=== PATIENT | male | born 1940 | race Caucasian/White ===

== ENCOUNTER → 2023-11-20 15:19 | Outpatient (REF) | payer BC, SELFPAY ==
[2023-11-20 16:14] LABS: % Basophils 0.5 % (0-2); % Eosinophils 2.7 % (0-6); % Immature Granulocytes 0.2 % (0-0.5); % Lymphocytes 25.8 % (20.5-51.1); % Neutrophils 61.8 % (42.2-75.2); Absolute Eosinophils 0.2 10^3/uL (0-0.7); Absolute Lymphocytes 2.1 10^3/uL (1.2-3.4); Absolute Monocytes 0.7 10^3/uL (0.1-0.6); Absolute Neutrophils 5.1 10^3/uL (1.4-6.5); Hemoglobin 14.1 g/dL (13.0-18.0); Mean Corp Hgb Conc. 33.6 g/dL (33.0-37.0); Mean Corpuscular Hgb 29.6 pg (27.0-31.0); Mean Corpuscular Volume 88.2 fL (80.0-94.0); Mean Platelet Volume 10.1 fL (7.4-10.4); Nucleated Red Blood Cells % 0 % (-); Platelet Count 203 10^3/uL (130-400); Red Blood Cell Count 4.76 10^6/uL (4.70-6.10); Red Cell Dist. Width 14.4 % (11.5-14.5); White Blood Cell Count 8.2 10^3/uL (4.8-10.8)
[2023-11-20 16:28] LABS: ALT (SGPT) 20 U/L (0-50); AST (SGOT) 26 U/L (17-59); Albumin 4.1 g/dl (3.5-5.0); Alkaline Phosphatase 54 U/L (38-126); Blood Urea Nitrogen 28 mg/dl (9-20); Calcium 9.4 mg/dl (8.4-10.2); Carbon Dioxide 26 mmol/L (22-30); Chloride 99 mmol/L (98-107); Glucose 108 mg/dl (70-99); Potassium 4.6 mmol/L (3.5-5.1); Sodium 136 mmol/L (135-145); Total Bilirubin 0.8 mg/dl (0.2-1.3); Total Protein 7.2 g/dl (6.3-8.2); eGFR 50.49
[2023-11-20 16:30] LABS: C-Reactive Protein < 5.00 mg/L (0.0-10.00)
[2023-11-20 16:38] LABS: Erythrocyte Sed Rate 16 mm/hour (0-20)
[2023-11-21 09:33] LABS: Glycohemoglobin (HgbA1c) 6.1 % (4.0-5.6)
== END ==
LOC: REG 15:19
PROVIDERS: ATTENDING PHYSICIAN Family Medicine
DX: I48.0 Paroxysmal atrial fibrillation (principal); R63.4 Abnormal weight loss; K86.9 Disease of pancreas, unspecified; M35.3 Polymyalgia rheumatica; E11.9 Type 2 diabetes mellitus without complications; I10 Essential (primary) hypertension; E78.2 Mixed hyperlipidemia
CPT/HCPCS: 36415; 80053; 83036; 85025; 85652; 86140

== ENCOUNTER → 2023-12-10 15:24 | Outpatient (REF) | payer BC, SELFPAY ==
[2023-12-10 16:06] LABS: Erythrocyte Sed Rate 4 mm/hour (0-20)
== END ==
LOC: REG 15:24
PROVIDERS: ATTENDING PHYSICIAN Family Medicine
DX: M35.3 Polymyalgia rheumatica (principal)
CPT/HCPCS: 36415; 85652; 86140

== ENCOUNTER → 2023-12-25 09:22 | Outpatient (REF) | payer BC, SELFPAY ==
[2023-12-25 10:37] LABS: HDL Cholesterol 39 mg/dl; LDL Cholesterol, Calculated 62 mg/dl; Total Cholesterol 143 mg/dl (50-199); Triglyceride 211 mg/dl (10-149); Very Low Density Lipoprotein 42 mg/dl (0-30)
[2023-12-25 11:06] LABS: TSH Reflex To Free T4 1.34 uIU/ml (0.47-4.68)
[2023-12-25 11:52] LABS: Glycohemoglobin (HgbA1c) 6.1 % (4.0-5.6)
== END ==
LOC: REG 09:22
PROVIDERS: ATTENDING PHYSICIAN Family Medicine
DX: R53.83 Other fatigue (principal); R63.4 Abnormal weight loss; E78.2 Mixed hyperlipidemia; R73.03 Prediabetes
CPT/HCPCS: 36415; 80061; 83036; 84443

== ENCOUNTER → 2024-11-08 10:51 | Outpatient (REF) | payer BC, MEDICARE, SELFPAY ==
[2024-11-08 14:22] LABS: Microalbumin, Random Urine 2.2 mg/dl (0.6-1.7)
[2024-11-08 14:36] LABS: TSH Reflex To Free T4 1.41 uIU/ml (0.47-4.68)
[2024-11-08 15:12] LABS: Glycohemoglobin (HgbA1c) 6.1 % (4.0-5.6)
== END ==
LOC: REG 10:51
PROVIDERS: ATTENDING PHYSICIAN Family Medicine
DX: I10 Essential (primary) hypertension (principal); E78.2 Mixed hyperlipidemia; J18.9 Pneumonia, unspecified organism; I50.9 Heart failure, unspecified; K21.9 Gastro-esophageal reflux disease without esophagitis; I77.89 Other specified disorders of arteries and arterioles; I44.39 Other atrioventricular block; I25.118 Atherosclerotic heart disease of native coronary artery with other forms of angina pectoris; E08.22 Diabetes mellitus due to underlying condition with diabetic chronic kidney disease; N18.31 Chronic kidney disease, stage 3a; I48.0 Paroxysmal atrial fibrillation; D68.69 Other thrombophilia; K22.70 Barrett's esophagus without dysplasia; F32.0 Major depressive disorder, single episode, mild; G47.33 Obstructive sleep apnea (adult) (pediatric); Z87.39 Personal history of other diseases of the musculoskeletal system and connective tissue; R05.1 Acute cough; J45.998 Other asthma; K86.89 Other specified diseases of pancreas; Z68.28 Body mass index [BMI] 28.0-28.9, adult; Z23 Encounter for immunization; R79.9 Abnormal finding of blood chemistry, unspecified
CPT/HCPCS: 36415; 82043; 83036; 84443

== ENCOUNTER → 2024-11-12 15:56 | Outpatient (REF) | payer BC, MEDICARE, SELFPAY ==
[2024-11-12 17:01] LABS: ALT (SGPT) 26 U/L (0-50); AST (SGOT) 34 U/L (17-59); Albumin 5.1 g/dl (3.5-5.0); Alkaline Phosphatase 59 U/L (38-126); Blood Urea Nitrogen 16 mg/dl (9-20); Calcium 9.2 mg/dl (8.4-10.2); Carbon Dioxide 24 mmol/L (22-30); Chloride 100 mmol/L (98-107); Glucose 95 mg/dl (70-99); Potassium 4.5 mmol/L (3.5-5.1); Sodium 136 mmol/L (135-145); Total Bilirubin 1.1 mg/dl (0.2-1.3); Total Protein 8.4 g/dl (6.3-8.2); eGFR > 60.00
== END ==
LOC: REG 15:56
PROVIDERS: ATTENDING PHYSICIAN Family Medicine
DX: I10 Essential (primary) hypertension (principal); E78.2 Mixed hyperlipidemia; R79.9 Abnormal finding of blood chemistry, unspecified; Z79.899 Other long term (current) drug therapy; Z01.89 Encounter for other specified special examinations
CPT/HCPCS: 36415; 80053

== ENCOUNTER → 2024-11-18 09:38 | Outpatient (REF) | payer BC, SELFPAY | LOC: RAD 09:38 | PROVIDERS: ATTENDING PHYSICIAN Family Medicine | DX: K86.89 Other specified diseases of pancreas (principal) | CPT/HCPCS: 74170; Q9967 ==

== ENCOUNTER 2025-08-25 20:57 | Emergency (ER) | payer BC, MEDICARE, SELFPAY ==
[2025-08-25 21:05] VITALS: BP 123/91
[2025-08-25 23:01] VITALS: BMI 28.8
[2025-08-25 23:05] VITALS: BP 136/51
[2025-08-26 00:03] VITALS: BP 113/78
[2025-08-26] MEDS: ADACEL 0.5 ML IM (00:17)
[2025-08-26 01:00] VITALS: BP 123/55
--- NOTE | 2025-08-26 01:14 | ED.GENMED ---
History of Present Illness
General
Chief Complaint: Fall
Time Seen by Provider: 08/25/25 23:12
History of Present Illness
History of Present Illness:
85-year-old male with history of A-fib on Eliquis presenting to the emergency department after a fall. Patient reports prior to arrival he fell while walking a dog. The dog saw another dog and pulled forward. He subsequently fell backward,
unclear if he struck his head. Notes that he injured his left hand and his right forearm. at bedside witnessed fall, denies any obvious loss of consciousness, however patient was some slight decreased responsiveness upon fall. About 5 days
ago, patient had an additional fall in the driveway, at which time he injured his right ribs, however was not seen in the hospital at that time. Patient denies any neck pain. Patient has been able to ambulate since the fall. Denies prodromal
lightheadedness. Denies any present chest pain, difficulty breathing, fever. Tetanus status unknown. Denies additional acute medical complaints
Past History
Past History
ED Past Medical History: CAD, CHF, CVA, GERD (Cates's esophagus), HTN, Hypercholesterolemia, MS and Other (PMR, status post right hip replacement, status post C5 discectomy, TIA, Sleep apnea)
ED Past Surgical History: Appendectomy, Cardiac (PTCA with stent X5, Pacemaker), Cholecystectomy, Orthopedic and Tonsilectomy
Social History
Tobacco: Former smoker
Alcohol: Occasional
Personal:
Living: with family
Employment: Retired
Family History
Family History: CAD
Phy Exam
Physical Exam
Physical Exam:
General: Well-appearing, no clinical signs of dehydration, nontoxic and in no acute distress
HEENT: protecting airway
Head: atraumatic
Neck: appears supple, no midline tenderness
CV: Normal heart rate, regular rhythm
Resp: No accessory muscle use, no increased work of breathing, lungs clear to auscultation bilaterally
Abd: Soft and non-distended, no tenderness to palpation
Extremities: Abrasion at the left hypothenar eminence with skin flap. Swelling and ecchymosis to the left first digit with range of motion intact. Bruising to the right forearm with no significant tenderness to palpation, range of motion intact.
Small amount of bruising to the right mid axillary rib cage with generalized tenderness to palpation. No crepitus.
Neuro: alert, no focal neurologic deficit
: deferred
Rectal: deferred
Psych: Normal affect
Skin: Intact
Course
Orders/Labs/Results
Orders:
Orders
08/25/25 21:09
CT Head W/o Iv Contrast Urgent
Comment:
Reason For Exam: fall
08/25/25 21:11
CR Ribs-right 3 Vw W/pa Chest* Urgent
Reason For Exam: fall
08/26/25 00:00
Forearm, Right 2 View [CR Forearm - Right 2 View] Urgent
Comment:
Reason For Exam: bruising, fall
Hand, Left 3 View [CR Hand - Left Min 3 Views] Urgent
Comment:
Reason For Exam: fall, bruising
08/26/25 00:02
Tetanus/Diphth/Acelpertussis [Adacel] 0.5 ml IM .ONCE ONE
Vital Signs
Initial and Last Documented VS:
Initial Vital Signs
Temp Pulse Resp BP Pulse Ox
98.0 F 66 19 123/91 92
08/25/25 21:05 08/25/25 21:05 08/25/25 21:05 08/25/25 21:05 08/25/25 21:05
Last Documented Vital Signs
Temp Pulse Resp BP Pulse Ox
98.0 F 63 19 136/51 92
08/25/25 21:05 08/25/25 23:30 08/25/25 23:30 08/25/25 23:05 08/25/25 21:05
MDM/Problems Addressed
MDM/Problems Addressed:
85[facility]. Vital signs on arrival are normal.
On exam, patient is resting comfortably, no acute distress or discomfort. Unclear if patient struck his head, denies head pain or neck pain, however at bedside notes that patient was out of it initially after the fall. Given his
anticoagulation status, CT brain obtained which is negative for acute intracranial abnormality or traumatic injury. Patient's main complaint at this time is right rib pain, however that pain occurred after his fall 5 days ago. Lungs are clear to
auscultation and rib x-ray obtained, no obvious fracture or malalignment. Patient additionally has injuries to his bilateral upper extremities, mainly his left hand and right forearm. No present neurovascular compromise. Range of motion is
grossly intact. Will obtain x-rays to ensure no fracture or malalignment. Will update tetanus with scattered abrasions. Additional abrasion to the left knee, however able to bear weight, no issues with range of motion, without concern fracture or
malalignment. Will update tetanus.
01:20 - X-rays of the left hand and right forearm without obvious fracture or patient. At this time suspect mild musculoskeletal injuries and tissue contusion. Ultimately feel stable for discharge. Advised Tylenol or Motrin as needed for pain
advised close outpatient primary care follow-up. Return precautions discussed and patient verbalized understanding
*Pulse Oximetry
SaO2: 92
Patient hypoxic: no
*Critical Care Note
Total Time (30-74mins, 75-104mins- exclusive of procedures): Not Applicable
ED Attending Note
-
Portions of this chart may have been created with voice recognition software.� Occasional wrong word or��sound alike� substitutions may have occurred due to the inherent limitations of voice recognition software.
Discharge Plan
Departure
Prescriptions:
No Action
pantoprazole 40 MG tablet,delayed release (DR/EC)
40 mg PO DAILY
rosuvastatin 5 MG tablet
5 mg PO HS
metoprolol succinate 50 MG tablet extended release 24 hr
50 mg PO HS
acetaminophen [Tylenol Extra Strength] 500 MG tablet
500 mg PO Q4HPRN PRN (Reason: mild pain)
nitroglycerin 0.4 MG tablet, sublingual
0.4 mg sublingual [id number] PRN (Reason: chest pain) Qty: 25 2RF
coQ10 (ubiquinol) 100 MG capsule
100 mg PO DAILY
Eliquis 5 MG tablet
5 mg PO BID Qty: 0 0RF
Jardiance
5 mg PO DAILY
aspirin 81 mg Tablet,Delayed Release (Dr/Ec)
81 mg PO DAILY Qty: 30 2RF
meclizine 12.5 mg tablet
12.5 mg PO TID PRN (Reason: dizziness) Qty: 30 0RF
Referrals:
Meghana Gill MD [Family Provider, Family Practice]
Interventions
Interventions:
*Risk Screen - Suicide Last Done: 08/25/25 21:08
*General Assessment Last Done: 08/25/25 21:08
*Neglect/Abuse Screening Last Done: 08/25/25 21:08
*ED- Fall Risk Assessment Last Done: 08/25/25 23:01
*ED COVID-19 Vaccine History Last Done: 08/25/25 21:08
*ED Influenza Vaccine History Last Done: 08/25/25 21:08
Discharge Date and Time
Print Language: [place]
== END 2025-08-26 01:59 | disposition home or self-care (01) ==
LOC: EMR 20:57
PROVIDERS: EMERGENCY PHYSICIAN Student in an Organized Health Care Education/Training Program; FAMILY PHYSICIAN Family Medicine
DX: S50.11XA Contusion of right forearm, initial encounter (principal); S20.211A Contusion of right front wall of thorax, initial encounter; S60.512A Abrasion of left hand, initial encounter; S80.212A Abrasion, left knee, initial encounter; W18.39XA Other fall on same level, initial encounter; Y93.K1 Activity, walking an animal; E78.00 Pure hypercholesterolemia, unspecified; G47.30 Sleep apnea, unspecified; I11.0 Hypertensive heart disease with heart failure; I50.9 Heart failure, unspecified; I25.10 Atherosclerotic heart disease of native coronary artery without angina pectoris; I25.2 Old myocardial infarction; I48.91 Unspecified atrial fibrillation; Z79.01 Long term (current) use of anticoagulants; Z86.73 Personal history of transient ischemic attack (TIA), and cerebral infarction without residual deficits; Z95.5 Presence of coronary angioplasty implant and graft; Z95.810 Presence of automatic (implantable) cardiac defibrillator; Z23 Encounter for immunization
CPT/HCPCS: 90471; 99284; 70450; 71101; 73090; 73130; 90715